=== PATIENT | male | born 1975 | race African-American/Black ===

== ENCOUNTER 2017-12-24 20:45 | Emergency (ER) | payer OTHER | END 2017-12-24 21:51 | LOC: ERS 20:45 | DX: Z02.89 Encounter for other administrative examinations (principal); B20 Human immunodeficiency virus [HIV] disease; F17.210 Nicotine dependence, cigarettes, uncomplicated | CPT/HCPCS: 99283 ==

== ENCOUNTER 2022-01-31 13:53 | Emergency (ER) | payer SELFPAY ==
[2022-01-31 14:52] LABS: #Eosinphils 0.1 thou/uL (0.0-0.7); #Lymphocytes 2.2 thou/uL (1.20-3.40); #Monocytes 0.5 thou/uL (0.11-0.59); #Neutrophils 3.3 thou/uL (1.40-6.50); %Basophils 0.8 % (0.0-1.0); %Eosinophils 1.1 % (0.0-10.0); %Lymphocytes 36.1 % (21.0-51.0); %Monocytes 7.6 % (0.0-10.0); %Neutrophils 54.4 % (42.0-75.0); Hemoglobin 14.6 g/dL (14.0-18.0); Mean Corpuscular HGB CONC 32.8 g/dL (32.0-36.0); Mean Corpuscular Hemoglobin 32.9 pg (27.0-31.0); Platelet Count 254 thou/uL (130-400); RBC Distribution Width 12.6 % (11.5-14.5); Red Blood Cell (RBC) Count 4.43 mill/uL (4.70-6.10)
[2022-01-31 15:16] LABS: ALT (SGPT) 15 U/L (8-55); AST (SGOT) 16 U/L (5-34); Albumin 3.9 g/dL (3.5-5.0); Alkaline Phosphatase 70 U/L (40-110); Anion Gap 10 mmol/L (10-20); BUN (Urea Nitrogen) 24 mg/dL (8.9-20.6); Bilirubin, Total 1.1 mg/dL (0.2-1.2); Calc. Creatinine Clearance 0 mL/min (70-130); Calcium 8.7 mg/dL (7.8-10.44); Carbon Dioxide 26 mmol/L (22-29); Chloride 107 mmol/L (98-107); Glucose 87 mg/dL (70-105); Protein, Total 6.9 g/dL (6.0-8.3); Sodium 139 mmol/L (136-145)
== END 2022-01-31 16:33 | disposition home or self-care (01) ==
LOC: ERS 13:53
DX: R79.89 Other specified abnormal findings of blood chemistry (principal); Z21 Asymptomatic human immunodeficiency virus [HIV] infection status; F17.210 Nicotine dependence, cigarettes, uncomplicated
CPT/HCPCS: 36415; 80053; 85025; 99283